=== PATIENT | male | born 1960 | race Hispanic/Latino ===

== ENCOUNTER → 2019-02-01 | Outpatient (CLI) | payer MEDICARE | END | disposition home or self-care (01) | LOC: RAH 08:25 | PROVIDERS: ATTEND Internal Medicine Cardiovascular Disease | DX: N28.9 Disorder of kidney and ureter, unspecified (principal); K76.9 Liver disease, unspecified | CPT/HCPCS: 76700 ==

== ENCOUNTER 2020-09-20 09:06 | Day surgery (SDC) | payer MEDICARE ==
[2020-09-20 09:48] VITALS: BP 136/63
[2020-09-20 10:10] LABS: TOTAL PROTEIN, SERUM 8.2 g/dL (6.0-8.3)
[2020-09-20 10:29] LABS: INR 1.14 (0.85-1.15); PROTHROMBIN TIME 12.3 SEC (9.6-11.6)
[2020-09-20 12:30] VITALS: BP 145/72
[2020-09-20 12:45] VITALS: BP 136/75
[2020-09-20 13:00] VITALS: BP 137/75
[2020-09-20 13:15] VITALS: BP 136/75
[2020-09-20 14:07] LABS: APPEARANCE BODY FLUID CLOUDY (CLEAR); BODY FLUID WBC 398 /cu. mm.; COLOR,BODY FLUID RED (LT YELLOW); SPECIMENTYPE,BODY FLUID PLEURAL; TOTAL VOLUME,BODY FLUID 1300 mL
[2020-09-20 14:08] LABS: BODY FLUID RBC 17425 /cu. mm.
[2020-09-20 14:16] LABS: BF LYMPHOCYTE 25 %; BF MESOTHELIAL 61 %; BF MONOCYTE 12 %
== END 2020-09-20 13:40 | disposition home or self-care (01) ==
LOC: DAH 09:06
PROVIDERS: ATTEND Internal Medicine
DX: J90 Pleural effusion, not elsewhere classified (principal); E11.22 Type 2 diabetes mellitus with diabetic chronic kidney disease; I13.2 Hypertensive heart and chronic kidney disease with heart failure and with stage 5 chronic kidney disease, or end stage renal disease; N18.6 End stage renal disease; I50.9 Heart failure, unspecified; E11.51 Type 2 diabetes mellitus with diabetic peripheral angiopathy without gangrene; J44.9 Chronic obstructive pulmonary disease, unspecified; K21.9 Gastro-esophageal reflux disease without esophagitis; I25.10 Atherosclerotic heart disease of native coronary artery without angina pectoris; Z82.49 Family history of ischemic heart disease and other diseases of the circulatory system; Z83.3 Family history of diabetes mellitus; Z79.01 Long term (current) use of anticoagulants; Z79.899 Other long term (current) drug therapy; Z98.890 Other specified postprocedural states; Z99.2 Dependence on renal dialysis; Z79.84 Long term (current) use of oral hypoglycemic drugs
CPT/HCPCS: 32555; 36415; 71045; 76604; 82945; 82948; 83615 ×2; 83986; 84155; 84157; 85610; 85730; 87071; 87205; 88112; 88305; 89051; A4606; A4615; A4663; A6258; A6402; C1729; 32557

== ENCOUNTER 2020-12-03 15:57 | Emergency (ER) | payer MEDICARE ==
[~2020-12-03] VITALS: Ht 175.3 cm; Wt 68.5 kg
[2020-12-03 15:59] VITALS: BP 130/59
[2020-12-03 16:34] VITALS: BP 133/60
[2020-12-03 16:55] LABS: BASOPHILS % (AUTO) 0.8 % (0.0-5.0); HEMATOCRIT 23.8 % (42-54); MEAN CORPUSCULAR HEMOGLOBIN 29.5 pg (27.0-33.0); MEAN CORPUSCULAR HGB CONC 30.3 g/dL (32.0-36.0); MEAN CORPUSCULAR VOLUME 97.5 fL (79-99); MONOCYTES % (AUTO) 10.1 % (3.0-13.0); NEUTROPHILS % (AUTO) 72.6 % (40.0-77.0); PLATELET COUNT (AUTO) 231 K/uL (130-400); RED BLOOD CELL COUNT(AUTO) 2.44 MIL/uL (4.50-6.20); RED CELL DISTRIBUTION WIDTH 19.9 % (11.0-15.5); WHITE BLOOD COUNT (AUTO) 6.1 K/uL (4.8-10.8)
[2020-12-03 17:05] LABS: CREATININE 4.3 mg/dL (0.5-1.5); POTASSIUM 4.3 mmol/L (3.5-5.1)
[2020-12-03 17:07] LABS: INR 1.15 (0.85-1.15); PROTHROMBIN TIME 12.4 SEC (9.6-11.6)
[2020-12-03 17:14] LABS: ALBUMIN 2.3 g/dL (3.5-5.0); BILIRUBIN,TOTAL 0.4 mg/dL (0.2-1.0); TOTAL PROTEIN, SERUM 6.5 g/dL (6.0-8.3)
[2020-12-03 18:32] VITALS: BP 126/57
== END 2020-12-03 19:29 | disposition home or self-care (01) ==
LOC: EDH 15:57
DX: D64.9 Anemia, unspecified (principal); E10.9 Type 1 diabetes mellitus without complications; I10 Essential (primary) hypertension; Z89.512 Acquired absence of left leg below knee; Z89.511 Acquired absence of right leg below knee; Z99.2 Dependence on renal dialysis
CPT/HCPCS: 36415; 80053; 84484; 85025; 85610; 93005

== ENCOUNTER → 2021-05-18 | Outpatient (CLI) | payer OTHER, MEDICARE | END | disposition home or self-care (01) | LOC: SHCH 09:53 | PROVIDERS: ATTEND Internal Medicine Cardiovascular Disease | DX: I11.0 Hypertensive heart disease with heart failure (principal); I50.42 Chronic combined systolic (congestive) and diastolic (congestive) heart failure; I08.0 Rheumatic disorders of both mitral and aortic valves; E11.9 Type 2 diabetes mellitus without complications | CPT/HCPCS: 93306 ==

== ENCOUNTER 2021-12-27 20:32 | Emergency (ER) | payer OTHER, MEDICARE ==
[~2021-12-27] VITALS: Ht 172.7 cm; Wt 62.6 kg
[2021-12-27 21:21] LABS: BASOPHILS % (AUTO) 1.2 % (0.0-5.0); EOSINOPHILS % (AUTO) 3.1 % (0.0-8.0); HEMATOCRIT 34.6 % (42-54); LYMPHOCYTES % (AUTO) 23.4 % (21.0-51.0); MEAN CORPUSCULAR HGB CONC 31.5 g/dL (32.0-36.0); MEAN CORPUSCULAR VOLUME 98.3 fL (79-99); NEUTROPHILS % (AUTO) 58.7 % (40.0-77.0); PLATELET COUNT (AUTO) 137 K/uL (130-400); RED BLOOD CELL COUNT(AUTO) 3.52 MIL/uL (4.50-6.20); RED CELL DISTRIBUTION WIDTH 17.3 % (11.0-15.5); WHITE BLOOD COUNT (AUTO) 5.1 K/uL (4.8-10.8)
[2021-12-27 21:27] LABS: CREATININE 4.1 mg/dL (0.5-1.5); POTASSIUM 3.6 mmol/L (3.5-5.1)
[2021-12-27 21:36] LABS: ALBUMIN 3.3 g/dL (3.5-5.0); TOTAL PROTEIN, SERUM 7.6 g/dL (6.0-8.3)
[2021-12-27 23:48] VITALS: BP 127/64
== END 2021-12-27 23:49 | disposition home or self-care (01) ==
LOC: EDH 20:32
DX: R51.9 Headache, unspecified (principal); R42 Dizziness and giddiness; I25.10 Atherosclerotic heart disease of native coronary artery without angina pectoris; E11.9 Type 2 diabetes mellitus without complications; I10 Essential (primary) hypertension; Z98.890 Other specified postprocedural states
CPT/HCPCS: 36415; 70450; 80053; 84484; 85025; 93005

== ENCOUNTER 2022-02-20 10:11 | Observation (INO) | payer OTHER, MEDICARE ==
[~2022-02-20] VITALS: Ht 175.3 cm; Wt 67.2 kg
[2022-02-20 10:49] LABS: HEMATOCRIT 32.8 % (42-54); MEAN CORPUSCULAR HEMOGLOBIN 32.4 pg (27.0-33.0); MEAN CORPUSCULAR HGB CONC 31.7 g/dL (32.0-36.0); MEAN CORPUSCULAR VOLUME 102.2 fL (79-99); PLATELET COUNT (AUTO) 114 K/uL (130-400); RED BLOOD CELL COUNT(AUTO) 3.21 MIL/uL (4.50-6.20); RED CELL DISTRIBUTION WIDTH 15.5 % (11.0-15.5); WHITE BLOOD COUNT (AUTO) 5.7 K/uL (4.8-10.8)
[2022-02-20 10:58] LABS: CREATININE 5.1 mg/dL (0.5-1.5)
[2022-02-20 11:03] LABS: ALBUMIN 3.3 g/dL (3.5-5.0); TOTAL PROTEIN, SERUM 7.6 g/dL (6.0-8.3)
[2022-02-20 11:30] LABS: EOSINOPHILS % (MANUAL) 2 % (1-6); LYMPHOCYTES % (MANUAL) 16 % (22-44); MAN.DIFF COMMENT-IMPRESSION MANUAL DIFFERENTIAL; MONOCYTES % (MANUAL) 11 % (2-9); PLATELET MORPHOLOGY COMMENT SLIGHTLY DECREASED; SEGMENTED NEUTROPHILS % 71 % (40-70)
[2022-02-20] MEDS ORDERED: ASPIRIN 325MG TAB PO ONE (11:30)
[2022-02-20] MEDS ORDERED: NITROGLYCERIN 1GM OINT 1 INCH/1GM TD ONE (11:30)
[2022-02-20] MEDS ORDERED: ONDANSETRON 4MG INJ IVP ONE (11:30)
[2022-02-20] MEDS ORDERED: ACETAMINOPHEN 325 MG TAB PO PRN (15:00)
[2022-02-20] MEDS ORDERED: DEXTROSE 50%-WATER 50 ML DISP.SYRIN IV PRN (15:00)
[2022-02-20] MEDS ORDERED: GLUCAGON 1MG KIT 1 MG ML IM PRN (15:00)
[2022-02-20] MEDS ORDERED: ONDANSETRON 4MG INJ IVP PRN (15:00)
[2022-02-20] MEDS: INSULIN HUMULIN R 100 UNIT/ML 3ML SQ SCH ×2 (16:30→21:01)
[2022-02-20] MEDS ORDERED: MIDO5TAB4 PO (17:44)
[2022-02-20] MEDS ORDERED: ACET-66 PO (17:44)
[2022-02-20] MEDS ORDERED: ONDA4TAB10 PO (17:44)
[2022-02-20] MEDS ORDERED: LINA72CA PO (17:44)
[2022-02-20] MEDS ORDERED: FIORIT PO (17:44)
[2022-02-20] MEDS ORDERED: AMIO200T68 PO (17:48)
[2022-02-20] MEDS ORDERED: AMLO-258 PO (17:48)
[2022-02-20] MEDS ORDERED: SACU1TAB PO (17:48)
[2022-02-20] MEDS ORDERED: ATORVASTATIN 20 MG TABLET PO SCH (21:00)
[2022-02-21] VITALS (19 sets, daily range): BP systolic 123–158; BP diastolic 58–70
[2022-02-21 04:39] LABS: HEMATOCRIT 30.1 % (42-54); MEAN CORPUSCULAR HEMOGLOBIN 31.9 pg (27.0-33.0); MEAN CORPUSCULAR HGB CONC 31.6 g/dL (32.0-36.0); RED BLOOD CELL COUNT(AUTO) 2.98 MIL/uL (4.50-6.20); RED CELL DISTRIBUTION WIDTH 15.6 % (11.0-15.5)
[2022-02-21 04:52] LABS: ALBUMIN 2.8 g/dL (3.5-5.0); CREATININE 6.6 mg/dL (0.5-1.5); POTASSIUM 4.4 mmol/L (3.5-5.1); TOTAL PROTEIN, SERUM 6.6 g/dL (6.0-8.3)
[2022-02-21] MEDS: INSULIN HUMULIN R 100 UNIT/ML 3ML SQ SCH ×3 (06:56→16:30)
[2022-02-21] MEDS ORDERED: LACTULOSE 20 GM/30 ML UDCUP PO PRN (07:00)
[2022-02-21] MEDS ORDERED: CLOB30CR5 TP (07:05)
[2022-02-21] MEDS ORDERED: FOLI1TAB85 PO (07:05)
[2022-02-21] MEDS ORDERED: SEVE800T7 PO (07:05)
[2022-02-21] MEDS ORDERED: FAMO20TA8 PO (07:05)
[2022-02-21] MEDS ORDERED: HYDR-3421 PO (07:05)
[2022-02-21] MEDS ORDERED: ATOR40TA69 PO (07:05)
[2022-02-21] MEDS ORDERED: LEVO125T11 PO (07:05)
[2022-02-21] MEDS ORDERED: ASPIRIN 81 MG EC TAB PO SCH (09:00)
[2022-02-22 02:56] LABS: HEPATITIS B SURFACE ANTIGEN Non-Reactive (Nonreactive)
[2022-03-04] MEDS ORDERED: CEFU500T67 PO (15:33)
== END 2022-02-21 18:12 | disposition home or self-care (01) ==
LOC: EDH 10:11 → EDHIP 13:18 → INTOOBSV 13:18 → OBSVTOIN 13:18 → 4BH 23:10
PROVIDERS: ADMIT Hospitalist; ATTEND Hospitalist
DX: G43.909 Migraine, unspecified, not intractable, without status migrainosus (principal); I12.0 Hypertensive chronic kidney disease with stage 5 chronic kidney disease or end stage renal disease; N18.6 End stage renal disease; E11.22 Type 2 diabetes mellitus with diabetic chronic kidney disease; D63.1 Anemia in chronic kidney disease; I25.10 Atherosclerotic heart disease of native coronary artery without angina pectoris; E03.9 Hypothyroidism, unspecified; E78.5 Hyperlipidemia, unspecified; I99.9 Unspecified disorder of circulatory system; I24.9 Acute ischemic heart disease, unspecified; L02.92 Furuncle, unspecified; J44.9 Chronic obstructive pulmonary disease, unspecified; Z87.891 Personal history of nicotine dependence; Z89.511 Acquired absence of right leg below knee; Z89.512 Acquired absence of left leg below knee; Z95.1 Presence of aortocoronary bypass graft; Z99.2 Dependence on renal dialysis; Z79.899 Other long term (current) drug therapy; Z98.890 Other specified postprocedural states
CPT/HCPCS: 96374; 99285; 84484 ×4; 80053 ×2; 85025; 82948 ×4; 36415 ×2; 71045; 93005; 96376; 85027; 86706; 87340; 86704; 70450; J1815; G0378 ×27; J2405 ×2; G0257; 90935

== ENCOUNTER 2022-04-24 14:32 | Emergency (ER) | payer OTHER, MEDICARE ==
[~2022-04-24] VITALS: Ht 175.3 cm; Wt 60.8 kg
[~2022-04-24 14:32] MED LIST: ACET-66 PO; AMIO200T68 PO; AMLO-258 PO; ATOR40TA69 PO; CEFU500T67 PO; CLOB30CR5 TP; FAMO20TA8 PO; FIORIT PO; FOLI1TAB85 PO; HYDR-3421 PO; LEVO125T11 PO; LINA72CA PO; MIDO5TAB4 PO; ONDA4TAB10 PO; SACU1TAB PO; SEVE800T7 PO
[2022-04-24 15:39] LABS: BASOPHILS % (AUTO) 0.5 % (0.0-5.0); EOSINOPHILS % (AUTO) 2.2 % (0.0-8.0); HEMATOCRIT 36.3 % (42-54); LYMPHOCYTES % (AUTO) 13.4 % (21.0-51.0); MEAN CORPUSCULAR HGB CONC 30.9 g/dL (32.0-36.0); MEAN CORPUSCULAR VOLUME 103.7 fL (79-99); MONOCYTES % (AUTO) 13.9 % (3.0-13.0); NEUTROPHILS % (AUTO) 69.8 % (40.0-77.0); PLATELET COUNT (AUTO) 121 K/uL (130-400); RED CELL DISTRIBUTION WIDTH 15.2 % (11.0-15.5); WHITE BLOOD COUNT (AUTO) 5.5 K/uL (4.8-10.8)
[2022-04-24 15:56] LABS: CREATININE 6.2 mg/dL (0.5-1.5); POTASSIUM 4.5 mmol/L (3.5-5.1)
[2022-04-24 16:02] LABS: ALBUMIN 3.3 g/dL (3.5-5.0); MAGNESIUM 2.4 mg/dL (1.80-2.40); TOTAL PROTEIN, SERUM 7.5 g/dL (6.0-8.3)
[2022-04-24 17:10] VITALS: BP 126/57
== END 2022-04-24 17:16 | disposition home or self-care (01) ==
LOC: EDH 14:32
DX: R00.2 Palpitations (principal); G43.909 Migraine, unspecified, not intractable, without status migrainosus; I25.10 Atherosclerotic heart disease of native coronary artery without angina pectoris; J44.9 Chronic obstructive pulmonary disease, unspecified; I12.0 Hypertensive chronic kidney disease with stage 5 chronic kidney disease or end stage renal disease; E11.22 Type 2 diabetes mellitus with diabetic chronic kidney disease; N18.6 End stage renal disease; E03.9 Hypothyroidism, unspecified; Z99.2 Dependence on renal dialysis; Z95.1 Presence of aortocoronary bypass graft; Z79.899 Other long term (current) drug therapy
CPT/HCPCS: 36415; 80053; 83735; 84484; 85025; 93005

== ENCOUNTER → 2022-04-29 | Outpatient (CLI) | payer OTHER, MEDICARE ==
[~2022-04-29] MED LIST changes: +IOHEXOL 350 MG/ML 100ML INFUS..BTL IV ONE
== END | disposition home or self-care (01) ==
LOC: RAH 10:00
PROVIDERS: ATTEND Internal Medicine
DX: N26.1 Atrophy of kidney (terminal) (principal); J92.9 Pleural plaque without asbestos; J98.11 Atelectasis; I25.10 Atherosclerotic heart disease of native coronary artery without angina pectoris; M47.815 Spondylosis without myelopathy or radiculopathy, thoracolumbar region; R93.2 Abnormal findings on diagnostic imaging of liver and biliary tract
CPT/HCPCS: 74170; Q9967

== ENCOUNTER 2022-05-24 16:56 | Emergency (ER) | payer OTHER, MEDICARE ==
[~2022-05-24] VITALS: Ht 175.3 cm; Wt 63.5 kg
[~2022-05-24 16:56] MED LIST changes: -IOHEXOL 350 MG/ML 100ML INFUS..BTL IV ONE
[2022-05-24 17:39] LABS: BASOPHILS % (AUTO) 0.5 % (0.0-5.0); EOSINOPHILS % (AUTO) 3.6 % (0.0-8.0); HEMATOCRIT 37.5 % (42-54); LYMPHOCYTES % (AUTO) 17.5 % (21.0-51.0); MEAN CORPUSCULAR HEMOGLOBIN 31.5 pg (27.0-33.0); MEAN CORPUSCULAR HGB CONC 31.2 g/dL (32.0-36.0); MEAN CORPUSCULAR VOLUME 101.1 fL (79-99); MONOCYTES % (AUTO) 8.5 % (3.0-13.0); NEUTROPHILS % (AUTO) 69.6 % (40.0-77.0); PLATELET COUNT (AUTO) 109 K/uL (130-400); RED BLOOD CELL COUNT(AUTO) 3.71 MIL/uL (4.50-6.20); RED CELL DISTRIBUTION WIDTH 14.6 % (11.0-15.5); WHITE BLOOD COUNT (AUTO) 5.9 K/uL (4.8-10.8)
[2022-05-24 17:57] LABS: CREATININE 6.1 mg/dL (0.5-1.5); POTASSIUM 4.5 mmol/L (3.5-5.1)
[2022-05-24 18:02] LABS: ALBUMIN 3.9 g/dL (3.5-5.0); TOTAL PROTEIN, SERUM 7.7 g/dL (6.0-8.3)
[2022-05-24 19:14] VITALS: BP 140/61
== END 2022-05-24 19:21 | disposition home or self-care (01) ==
LOC: EDH 16:56
DX: I12.0 Hypertensive chronic kidney disease with stage 5 chronic kidney disease or end stage renal disease (principal); I16.0 Hypertensive urgency; E11.22 Type 2 diabetes mellitus with diabetic chronic kidney disease; N18.6 End stage renal disease; E78.00 Pure hypercholesterolemia, unspecified; I25.2 Old myocardial infarction; J44.9 Chronic obstructive pulmonary disease, unspecified; Z95.1 Presence of aortocoronary bypass graft; Z99.2 Dependence on renal dialysis
CPT/HCPCS: 36415; 80053; 84484; 85025; 93005

== ENCOUNTER 2022-07-01 09:58 | Emergency (ER) | payer OTHER, MEDICARE ==
[~2022-07-01] VITALS: Ht 175.3 cm; Wt 59.9 kg
[2022-07-01 10:33] LABS: BASOPHILS % (AUTO) 0.5 % (0.0-5.0); EOSINOPHILS % (AUTO) 2.2 % (0.0-8.0); LYMPHOCYTES % (AUTO) 11.3 % (21.0-51.0); MEAN CORPUSCULAR HEMOGLOBIN 31.3 pg (27.0-33.0); MEAN CORPUSCULAR HGB CONC 31.2 g/dL (32.0-36.0); MEAN CORPUSCULAR VOLUME 100.3 fL (79-99); MONOCYTES % (AUTO) 9.1 % (3.0-13.0); NEUTROPHILS % (AUTO) 76.6 % (40.0-77.0); PLATELET COUNT (AUTO) 108 K/uL (130-400); RED BLOOD CELL COUNT(AUTO) 3.29 MIL/uL (4.50-6.20); RED CELL DISTRIBUTION WIDTH 14.7 % (11.0-15.5)
[2022-07-01 10:55] LABS: CREATININE 7.1 mg/dL (0.5-1.5)
[2022-07-01 10:59] LABS: ALBUMIN 3.5 g/dL (3.5-5.0); MAGNESIUM 2.1 mg/dL (1.80-2.40); TOTAL PROTEIN, SERUM 7.2 g/dL (6.0-8.3)
[2022-07-01 11:11] LABS: B-TYPE NATRIURETIC PEPTIDE 2810 pg/mL (0-100)
[2022-07-01 13:19] VITALS: BP 137/76
== END 2022-07-01 13:35 | disposition home or self-care (01) ==
LOC: EDH 09:58
DX: I16.0 Hypertensive urgency (principal); E11.22 Type 2 diabetes mellitus with diabetic chronic kidney disease; I12.0 Hypertensive chronic kidney disease with stage 5 chronic kidney disease or end stage renal disease; R00.2 Palpitations; N18.6 End stage renal disease; E78.00 Pure hypercholesterolemia, unspecified; J44.9 Chronic obstructive pulmonary disease, unspecified; Z89.511 Acquired absence of right leg below knee; Z89.512 Acquired absence of left leg below knee; Z95.1 Presence of aortocoronary bypass graft; Z99.2 Dependence on renal dialysis
CPT/HCPCS: 36415; 71045; 80053; 83735; 83880; 84484; 85025; 93005

== ENCOUNTER → 2022-07-08 | Outpatient (CLI) | payer OTHER, MEDICARE ==
[2022-07-08 13:36] LABS: BASOPHILS % (AUTO) 0.7 % (0.0-5.0); EOSINOPHILS % (AUTO) 3.6 % (0.0-8.0); LYMPHOCYTES % (AUTO) 16.8 % (21.0-51.0); MEAN CORPUSCULAR HEMOGLOBIN 31.3 pg (27.0-33.0); MEAN CORPUSCULAR HGB CONC 30.6 g/dL (32.0-36.0); MEAN CORPUSCULAR VOLUME 102.2 fL (79-99); MONOCYTES % (AUTO) 9.1 % (3.0-13.0); NEUTROPHILS % (AUTO) 69.7 % (40.0-77.0); PLATELET COUNT (AUTO) 147 K/uL (130-400); RED BLOOD CELL COUNT(AUTO) 3.23 MIL/uL (4.50-6.20); RED CELL DISTRIBUTION WIDTH 15.1 % (11.0-15.5); WHITE BLOOD COUNT (AUTO) 6.9 K/uL (4.8-10.8)
[2022-07-08 13:47] LABS: ALBUMIN 3.4 g/dL (3.5-5.0); BILIRUBIN,DIRECT 0.2 mg/dL (0.0-0.3); TOTAL PROTEIN, SERUM 7.2 g/dL (6.0-8.3)
== END | disposition home or self-care (01) ==
LOC: LAB 09:06
PROVIDERS: ATTEND Internal Medicine Cardiovascular Disease
DX: I50.42 Chronic combined systolic (congestive) and diastolic (congestive) heart failure (principal); I25.2 Old myocardial infarction
CPT/HCPCS: 36415; 80061; 80076; 85025

== ENCOUNTER → 2023-10-24 | Outpatient (CLI) | payer OTHER, MEDICARE ==
[~2023-10-24] MED LIST changes: +ONDA-243 PO; -ONDA4TAB10 PO
== END | disposition home or self-care (01) ==
LOC: LAB 09:21
PROVIDERS: ATTEND Internal Medicine Cardiovascular Disease
DX: I50.22 Chronic systolic (congestive) heart failure (principal)
CPT/HCPCS: 36415; 80151

== ENCOUNTER → 2024-03-01 | Outpatient (CLI) | payer OTHER, MEDICARE ==
[2024-03-01 13:05] LABS: ALANINE AMINOTRANSFERASE 12 U/L (12-78); ALBUMIN 3.1 g/dL (3.5-5.0); ASPARTATE AMINOTRANSFERASE 26 U/L (10-37); BILIRUBIN,TOTAL 0.9 mg/dL (0.2-1.0); CARBON DIOXIDE 30 mmol/L (21-32); CHLORIDE 101 mmol/L (101-111); CHOLESTEROL 106 mg/dL (<200); CREATININE 5.8 mg/dL (0.5-1.3); GLOMERULAR FILTR. RATE CALC 10 mL/min (>90); GLUCOSE,RANDOM 129 mg/dL (70-105); HDL CHOLESTEROL 61 mg/dL (29-71); LDL DIRECT 37 mg/dL (0-99); POTASSIUM 4.6 mmol/L (3.5-5.1); SODIUM SERUM 142 mmol/L (136-145); TOTAL PROTEIN, SERUM 7.3 g/dL (6.0-8.3); TRIGLYCERIDES 35 mg/dL (30-200); UREA NITROGEN, BLOOD 49 mg/dL (7-18)
== END | disposition home or self-care (01) ==
LOC: LAB 09:00
PROVIDERS: ATTEND Internal Medicine Cardiovascular Disease
DX: I95.2 Hypotension due to drugs (principal); Z79.899 Other long term (current) drug therapy
CPT/HCPCS: 36415; 80053; 80061; 83735; 83880